=== PATIENT | female | born 1990 | race Caucasian/White ===

== ENCOUNTER 2020-11-21 06:20 | Inpatient (IN) ==
[2020-11-21] MEDS ORDERED: ANCEF VIAL 1 GRAM IVP ONE (06:31)
[2020-11-21] MEDS ORDERED: D5 1/2 NS 1000 ML 1,000 ML IV SCH (06:31)
[2020-11-21] MEDS ORDERED: LR 1000 ML IV 1,000 ML IV ONE (06:32)
[2020-11-21] MEDS ORDERED: ANCEF 1 GRAM IV PREMIX* 2 G/100 ML BAG IV ONE (06:32)
[2020-11-21] MEDS ORDERED: DILAUDID INJ ONE (06:54)
[2020-11-21] MEDS ORDERED: PITOCIN ONE (06:55)
[2020-11-21] MEDS ORDERED: NS 1000 ML 1,000 ML ONE (06:55)
[2020-11-21] MEDS ORDERED: XYLOCAINE 1 % (PLAIN) ONE (07:15)
[2020-11-21] MEDS ORDERED: MARCAINE SPINAL ONE (07:15)
[2020-11-21] MEDS ORDERED: D5 1/2 NS 1L W PITOCIN 20 UNITS/L 20 UNITS/1,000 ML BAG IV ONE (07:15)
[2020-11-21] MEDS ORDERED: DILAUDID INJ IVP PRN (08:56)
[2020-11-21] MEDS ORDERED: REGLAN INJ 10 MG VIAL IVP PRN ×2 (08:56→09:43)
[2020-11-21] MEDS ORDERED: PHENERGAN INJ 25 MG IM PRN (08:56)
[2020-11-21] MEDS ORDERED: BENADRYL INJ 50 MG VIAL IVP PRN (08:56)
[2020-11-21] MEDS ORDERED: ZOFRAN INJ 4 MG VIAL IVP PRN ×2 (08:56→09:43)
[2020-11-21] MEDS ORDERED: MYLICON TAB 80 MG CHEW PO PRN (09:43)
[2020-11-21] MEDS ORDERED: ADACEL or BOOSTRIX TDaP VACCINE IM ONE ×2 (09:43→15:53)
[2020-11-21] MEDS ORDERED: PERCOCET TAB 5/325 MG PO PRN (09:43)
[2020-11-21] MEDS ORDERED: NARCAN INJ IVP PRN (09:43)
[2020-11-21] MEDS ORDERED: D5 1/2 NS 1000 ML 1,000 ML with PITOCIN 20 UNITS IV SCH ×2 (09:43)
[2020-11-21] MEDS: BENADRYL INJ 50 MG VIAL IVP PRN ×2 (10:24→14:41)
[2020-11-21] MEDS: PROTONIX TAB 40 MG PO SCH (11:20)
[2020-11-21] MEDS: PRENATAL PLUS PO SCH (11:21)
[2020-11-21] MEDS: CLARITIN PO SCH (11:21)
[2020-11-21] MEDS: TORADOL 30 MG VIAL IVP PRN ×2 (11:54→22:02)
[2020-11-21] MEDS ORDERED: BENADRYL INJ 50 MG VIAL ONE (14:42)
[2020-11-22] MEDS: TORADOL 30 MG VIAL IVP PRN (04:54)
[2020-11-22 06:30] LABS: HEMATOCRIT 30.7 % (36.0-47.0); HEMOGLOBIN 10.5 g/dL (12.0-16.0)
[2020-11-22] MEDS ORDERED: PERCOCET TAB 5/325 MG PO PRN (07:27)
[2020-11-22] MEDS: COLACE CAP 100 MG PO SCH ×2 (08:27→20:53)
[2020-11-22] MEDS: PRENATAL PLUS PO SCH (08:27)
[2020-11-22] MEDS: CLARITIN PO SCH (08:27)
[2020-11-22] MEDS: PROTONIX TAB 40 MG PO SCH (08:27)
[2020-11-22] MEDS: MOTRIN TAB 800 MG PO PRN ×2 (11:13→19:24)
[2020-11-22] MEDS: BACTROBAN TOPICAL OINT TOP SCH ×2 (13:50→22:56)
[2020-11-23] MEDS: MOTRIN TAB 800 MG PO PRN ×2 (03:11→09:46)
[2020-11-23] MEDS: BACTROBAN TOPICAL OINT TOP SCH (05:31)
[2020-11-23] MEDS: CLARITIN PO SCH (08:50)
[2020-11-23] MEDS: PROTONIX TAB 40 MG PO SCH (08:50)
[2020-11-23] MEDS: COLACE CAP 100 MG PO SCH (08:50)
[2020-11-23] MEDS: PRENATAL PLUS PO SCH (08:50)
[2020-11-23 12:22] VITALS: BP 135/91
== END 2020-11-23 13:25 | disposition home or self-care (01) | DRG 787 ==
LOC: LD 06:20 → MED/SURG 09:43
PROVIDERS: ADMIT Specialist; ATTEND Specialist
DX: Z37.0 Single live birth; O36.63X0 Maternal care for excessive fetal growth, third trimester, not applicable or unspecified; O24.429 Gestational diabetes mellitus in childbirth, unspecified control; O99.214 Obesity complicating childbirth; E66.01 Morbid (severe) obesity due to excess calories; Z3A.39 39 weeks gestation of pregnancy